=== PATIENT | female | born 1960 | race Caucasian/White ===

== ENCOUNTER 2018-11-13 12:00 | Day surgery (SDC) | payer OTHER ==
[2018-11-13] MEDS ORDERED: LIDOCAINE 1% 2 ML INJ ID PRN (12:19)
[2018-11-13] MEDS ORDERED: LR 1,000 ML IV ONE (12:19)
--- NOTE | 2018-11-13 12:58 | PDANEPAE ---
ANE History of Present Illness here for colonoscopy ANE Past Medical History - Cardiovascular History Hx Hypertension: No Hx Arrhythmias: No Hx Chest Pain: No Hx Coronary Artery / Peripheral Vascular Disease: No Hx CHF / Valvular Disease: No Hx Palpitations: No - Pulmonary History Hx COPD: No Hx Asthma/Reactive Airway Disease: No Hx Recent Upper Respiratory Infection: No Hx Oxygen in Use at Home: No Hx Sleep Apnea: No Sleep Apnea Screening Result - Last Documented: Negative - Neurologic History Hx Cerebrovascular Accident: No Hx Seizures: No Hx Dementia: No - Endocrine History Hx Diabetes: No Hypothyroid: Yes - Renal History Hx Renal Disorders: No - Liver History Hx Hepatic Disorders: No - Neurological & Psychiatric Hx Hx Neurological and Psychiatric Disorders: Yes Neurological / Psychiatric History Comment: panic disorder - Cancer History Hx Cancer: No - Congenital Disorder History Hx Congenital Disorders: No - GI History Hx Gastrointestinal Disorders: No - Other Health History Other Health History: none - Chronic Pain History Chronic Pain: No - Surgical History Prior Surgeries: colonoscopy 2018. cholecystectomy 2009 ANE Review of Systems Review of Systems: - Exercise capacity METS (RN): 5 METS ANE Patient History - Allergies Allergies/Adverse Reactions: erythromycin base Allergy (Verified 11/07/18 18:33) Rash - Home Medications Home Medications: Levothyroxine 11/07/18 [Last Taken 11/13/18 08:30] Lexapro 11/07/18 [Last Taken 11/13/18 08:30] valACYclovir 11/07/18 [Last Taken 2 Days Ago ~11/11/18] - NPO status NPO Status: no food or drink >8 hours NPO Since - Liquids (Date): 11/13/18 NPO Since - Liquids (Time): 05:30 NPO Since - Solids (Date): 11/12/18 NPO Since - Solids (Time): 09:00 - Anes Hx Anes Hx: no prior problems - Smoking Hx Smoking Status: Former smoker - Alcohol Use Alcohol Use: Occasionally - Family Anes Hx Family Anes Hx: none Family Hx Anesthesia Complications: none ANE Labs/Vital Signs - Vital Signs Blood Pressure: 109/68 Heart Rate: 65 Respiratory Rate: 18 O2 Sat (%): 93 Height: 170.18 cm Weight: 82.554 kg ANE Physical Exam - Airway Neck exam: FROM Mallampati Score: Class 2 Mouth exam: normal dental/mouth exam - Pulmonary Pulmonary: no respiratory distress, clear to auscultation - Cardiovascular Cardiovascular: regular rate and rhythym, no murmur, rub, or gallop - ASA Status ASA Status: II ANE Anesthesia Plan Anesthesia Plan: GA with mask Total IV Anesthesia: Yes
[2018-11-13] MEDS ORDERED: PROPOFOL/EMULSION 500 MG/50 ML BOTTLE IV ONE (13:35)
--- NOTE | 2018-11-13 13:38 | PDGENHP ---
History & Physical Chief Complaint: polyps History of Present Illness: 58 year old female presents for surveillance colonoscopy. Pertinent Past, Social, Family History: PMHx; hypothyroid, anxiety. FaMHx; bro - crc Relevant Physical Exam: HEENT: anicteric. CV : RRR +s1s2. lungs: CTAB. Abd: soft, nt, + bs Cardiorespiratory Assessment: ASA 3
[2018-11-13] MEDS ORDERED: INDOMETHACIN 50 MG SUPP PR PRN (13:39)
[2018-11-13] MEDS ORDERED: NS 500 ML IV SCH (13:45)
[2018-11-13] MEDS ORDERED: NALOXONE HCL 0.4 MG/ML INJ IVP PRN (14:22)
--- NOTE | 2018-11-13 14:24 | POSTANESTH ---
Post Anesthetic Evaluation Cardiovascular Status: Normal, Stable, Similar to Pre-Op Cond Respiratory Status: Normal, Stable, Similar to Pre-op Cond. Level of Consciousness/Mental Status: Can Participate in Eval, Alert and Oriented Pain Control: Adequate, Prn Tx Ordered Nausea/Vomiting Control: Adequate, Prn Tx Ordered Complications Possibly Related to Anesthesia: None Noted
--- NOTE | 2018-11-13 14:49 | GIREPORT ---
[facility] Surgical Services - Endoscopy Department Patient Name: Qing Smyth Procedure Date: 11/13/2018 1:40 PM Patient Type: Outpatient Attending MD/ ER Physician: Yasmani Huang MD Procedure: Colonoscopy Indications: High risk colon cancer surveillance: Personal history of colonic polyps Patient Profile: 58 slim old female with a history of complex ascending colon polyp prese nts for surveillance colonoscopy. Providers: Yasmani Huang MD Medicines: Monitored Anesthesia Care Complications: No immediate complications. Estimated blood loss: Minimal. Description of Procedure: After obtaining informed consent, the scope was passed under direct vis ion. Throughout the procedure, the patient's blood pressure, pulse, and oxyg en saturations were monitored continuously. The Colonoscope with irrigatio n channel was introduced through the anus and advanced to the cecum, identified by appendiceal orifice and ileocecal valve. The colonoscopy was performed without difficulty. The patient tolerated the procedure well. The quality of the bowel preparation was good. The ileocecal valve, appendi ceal orifice, and rectum were photographed. Findings: The perianal and digital rectal examinations were normal. Pertinent negatives include no palpable rectal lesions. Two sessile polyps were found in the ascending colon and cecum. The jamal yps were 4 to 6 mm in size. These polyps were removed with a cold snare. Resection and retrieval were complete. Estimated Blood Loss: Estimated blood loss was minimal. Post Op Diagnosis: - Two 4 to 6 mm polyps in the ascending colon and in the cecum, removed with a cold snare. Resected and retrieved. Recommendation: - Discharge patient to home (with escort). - The signs and symptoms of potential delayed complications were discus sed with the patient. - Patient has a contact number available for emergencies. - Return to normal activities tomorrow. - Resume previous diet. - Continue present medications. - Repeat colonoscopy in 3 years for surveillance. - Await pathology results. - Thank you for allowing me to participate in the care of your patient. Attending Participation: I personally performed the entire procedure. Yasmani Huang MD Yasmani Huang MD 11/13/2018 2:49:11 PM This report has been signed electronicallyYasmani Huang MD Number of Addenda: 0 Note Initiated On: 11/13/2018 1:40 PM Total Procedure Duration Time 0 hours 32 minutes 41 seconds [email or web address]
[2018-11-13 15:25] VITALS: BP 99/71
== END 2018-11-13 15:42 | disposition home or self-care (01) ==
LOC: FSGY 12:00
PROVIDERS: ATTEND Internal Medicine Gastroenterology
PROC: 0DBK8ZX Excision of Ascending Colon, Via Natural or Artificial Opening Endoscopic, Diagnostic (ICD-10-PCS; 2018-11-13)
PROC: 0DBH8ZX Excision of Cecum, Via Natural or Artificial Opening Endoscopic, Diagnostic (ICD-10-PCS; principal; 2018-11-13 13:45)
DX: Z12.11 Encounter for screening for malignant neoplasm of colon (principal); D12.0 Benign neoplasm of cecum; D12.2 Benign neoplasm of ascending colon; E03.9 Hypothyroidism, unspecified; F41.9 Anxiety disorder, unspecified; Z86.010 Personal history of colon polyps; Z87.891 Personal history of nicotine dependence
CPT/HCPCS: J2704